=== PATIENT | female | born 1955 | race Caucasian/White ===

== ENCOUNTER 2020-08-28 13:40 | Emergency (ER) | payer BC, OTHER ==
[~2020-08-28] VITALS: Ht 167.6 cm; Wt 72.6 kg
[~2020-08-28 13:40] MED LIST: VICODIN ES TAB1 EACH PO; Z.0.PROTONIX40 MG PO; Z.0.ZANTAC150 MG PO; protonix; zantac
[2020-08-28] MEDS ORDERED: PANTOPRAZOLE 40 MG 10ML VIAL IV STA (14:23)
[2020-08-28 14:31] LABS: BASOPHILS # (AUTO) 0.1 (0.0-0.1); BASOPHILS % 0.7 % (0.0-1.0); EOSINOPHILS # (AUTO) 0.3 (0.0-0.4); EOSINOPHILS % 2.8 % (0.0-6.0); HEMATOCRIT 46.9 % (34.2-44.1); HEMOGLOBIN 15.5 g/dL (12.0-16.0); LYMPHOCYTES # (AUTO) 1.7 (1.0-3.2); LYMPHOCYTES % 16.4 % (18.0-39.1); MEAN CORPUSCULAR HEMOGLOBIN 27.3 pg (28-32); MEAN CORPUSCULAR VOLUME 82.6 fL (81-99); MONOCYTES # (AUTO) 0.8 (0.2-0.8); MONOCYTES % 7.3 % (4.4-11.3); NEUTROPHILS # (AUTO) 7.6 (2.1-6.9); NEUTROPHILS % 72.5 % (38.7-80.0); PLATELET COUNT 271 x10e3/uL (140-360); RED BLOOD COUNT 5.68 x10e6/uL (3.6-5.1); RED CELL DISTRIBUTION WIDTH 13.6 % (11.7-14.4)
[2020-08-28 14:38] LABS: INR 0.97; PROTHROMBIN TIME 13.4 seconds (11.9-14.5)
[2020-08-28 14:39] LABS: PARTIAL THROMBOPLASTIN TIME 31.4 seconds (23.8-35.5)
[2020-08-28 14:46] LABS: ALANINE AMINOTRANSFERASE 22 IU/L (0-55); ALBUMIN 4.4 g/dL (3.5-5.0); ALBUMIN/GLOBULIN RATIO 1.2 (0.8-2.0); ALKALINE PHOSPHATASE 70 IU/L (40-150); ANION GAP 14.8 mmol/L (8-16); BLOOD UREA NITROGEN 13 mg/dL (7-26); BUN/CREATININE RATIO 14 (6-25); CARBON DIOXIDE 28 mmol/L (22-29); CHLORIDE 102 mmol/L (98-107); CREATINE KINASE 65 IU/L (29-168); EST GLOMERULAR FILTRATION RATE > 60 ML/MIN (60-); GLUCOSE 95 mg/dL (74-118); POTASSIUM 3.8 mmol/L (3.5-5.1); SODIUM 141 mmol/L (136-145)
--- OUTSIDE RECORDS SUMMARY | 2020-08-28 15:13 | XMS REPORT | Clinical Summary ---
Author Author [facility] Organization [facility] Address Unknown Phone Unavailable Care Team Providers Care Milling/Polishing Operator Name Role Phone Asked, No Pcp PCP Unavailable Allergies Not on File Medications Not on file Active Problems Not on file Encounters Care Team Description Date Type Specialty 04/01/2020 Travel 03/25/2020 Travel 03/20/2020 Travel 03/17/2020 Travel Michel Lester PA Lateral epicondylitis, left elbow (Prima ry Dx) 03/12/2020 Transcribe Physical Therapy Orders 03/12/2020 Travel after 08/28/2019 Social History Date Tobacco Use Types Packs/Day Years Used Never Assessed Sex Assigned at Date Recorded Not on file Last Filed Vital Signs Not on file Plan of Treatment Health Maintenance Due Date Last Done Comments CERVICAL CANCER SCREENING 1977 BREAST CANCER SCREENING 2006 COLONOSCOPY SCREENING 2006 SHINGLES VACCINES (#1) 2006 INFLUENZA VACCINE 05/23/2020 Results Not on fileafter 08/28/2019 Insurance Type Payer Benefit Subscriber ID Effective Phone Address Plan / Dates Group PPO BCBS BCBS [id number] 2019-P CHOICE resent PPO/JONATHAN BURTON PPO Advance Directives For more information, please contact: [phone] Patient Technology Methodology Consultant Explanation Type Date Recorded Advance Directives, Living Will and Medical Power of Classifier
--- OUTSIDE RECORDS SUMMARY | 2020-08-28 15:13 | XMS REPORT | Clinical Summary ---
Author Author JULIANNE [facility] Address Unknown Phone Unavailable Care Team Providers Care Food Service Steward Name Role Phone Sharpasael PCP Allergies No Known Allergies Medications End Date Status Medication Sig Dispensed Refills Start Date Active OMEPRAZOLE (PRILOSEC Take by 0 ORAL) mouth. Active Problems Not on file Social History Date Tobacco Use Types Packs/Day Years Used Never Smoker Drinks/Week oz/Week Comments Alcohol Use Yes Sex Assigned at Date Recorded Not on file Last Filed Vital Signs Not on file Plan of Treatment Health Maintenance Due Date Last Done Comments BREAST CANCER SCREENING 1956 COLON CANCER SCREENING 1956 COLONOSCOPY CERVICAL CANCER SCREENING 1977 PAP ONLY (Age 21-65) LIPID PANEL 2001 INFLUENZA VACCINE (#1) 2020 Results Not on fileafter 08/28/2019 Insurance Type Payer Benefit Subscriber ID Effective Phone Address Plan / Dates Group PPO BLUE CROSS/BLUE SHIELD BCBS PPO [id number] 2015-P [address] EPO resent [id number] [place] [address]
--- OUTSIDE RECORDS SUMMARY | 2020-08-28 15:13 | XMS REPORT | Continuity of Care Document ---
Author Author [facility] t Organization [facility] Address [address] [place] [address] Phone Unavailable Care Team Providers Care Rehabilitation Therapist Name Role Phone Asked, Pcp No PCP Unavailable MARCIA MOTA Attphys Unavailable Michel Sandhu Attphys Payers Payer Name Policy Type Policy Number Effective Date Expiration Date S ource BCBSBCBS CHOICE PPO/FEDERAL EMPL [id number] 2018- PresentPPO [id number] 2019 00:00:00 [place] [employer] Problems This patient has no known problems. Allergies, Adverse Reactions, Alerts Allergy Name Allergy Type Status Severity Reaction(s) Onset Date Inacti ve Date Treating Clinician Comments Source No Known Drug Allergies DA Active U 2019-12-25 00:00:[address] [facility] No Known Contrast Allergies DA Active U 2008-11-05 00:00: [address] [facility] No Known Drug Allergies DA Active U 2008-11-05 00:00:[address] [facility] No Known Food Allergies DA Active U 2008-11-05 00:00:[address] [facility] No Known Other Allergies DA Active U 2008-11-05 00:00:[address] [facility] No Known Drug Intolerances DA Active U 2008-11-04 00:00:[address] [facility] Social History Social Habit Start Date Stop Date Quantity Comments Source Sex Assigned At [facility] Alcohol intake 2014-09-14 00:00:00 2014-09-14 00:00:00 Current drinker of alcohol (finding) [facility] Smoking Status Start Date Stop Date Source Never smoker [facility] Medications Ordered Medication Name Filled Medication Name Start Date Stop Da te Current Medication? Ordering Clinician Indication Dosage Frequency Signature (SIG) Comments Components Source OMEPRAZOLE (PRILOSEC ORAL) 2014-09-14 21:57:50 Yes Take by mouth. [facility] Procedures This patient has no known procedures. Plan of Care Planned Activity Planned Date Details Comments Source Future Scheduled Test 2020-06-23 00:00:00 INFLUENZA VACCINE (#1) [code = INFLUENZA VACCINE (#1)] [facility] Future Scheduled Test 2020-05-23 00:00:00 INFLUENZA VACCINE [code = INFLUENZA VACCINE] [facility] Scheduled Test 2006 00:00:00 BREAST CANCER SCRE ENING [code = BREAST CANCER SCREENING] [facility] Future Scheduled Test 2006 00:00:00 COLONOSCOPY SCREEN ING [code = COLONOSCOPY SCREENING] [facility] Scheduled Test 2006 00:00:00 SHINGLES VACCINES (#1) [code = SHINGLES VACCINES (#1)] [facility] Scheduled Test 2001 00:00:00 Lipid panel (proce dure) [code = 39210077] [facility] Future Scheduled Test 1977 00:00:00 Screening for chong gnant neoplasm of cervix (procedure) [code = 940304024] [facility] Future Scheduled Test 1977 00:00:00 Screening for chong gnant neoplasm of cervix (procedure) [code = 895885974] [facility] Future Scheduled Test 1956 00:00:00 Screening for chong gnant neoplasm of breast (procedure) [code = 350308892] [facility] Future Scheduled Test 1956 00:00:00 Screening for chong gnant neoplasm of colon (procedure) [code = 648672567] [facility] Encounters Start Date/Time End Date/Time Encounter Type Admission Type [facility] Care Department Encounter ID Source 2020-04-01 00:00:00 2020-04-01 00:00:00 Outpatient MOTA, MARCIA [facility] [id number] Avery Meek 2020-03-25 00:00:00 2020-03-25 00:00:00 Outpatient MOTAMARCIA [facility] [id number] Avery Meek 2020-03-20 00:00:00 2020-03-20 00:00:00 Outpatient MOTA, MARCIA [facility] [id number] Avery Meek 2020-03-17 00:00:00 2020-03-17 00:00:00 Outpatient MOTA, MARCIA [facility] [id number] Avery Meek Results Test Description Test Time Test Comments Results Result Comments Source RAD, CHEST, 2 VIEWS 2017-11-06 08:55:00 Reason for Exam:->POS IG RA FINAL REPORT Chest two views INDICATION: Positive IGRA. COMPARISON: 09/14/2014 IMPRESSION: There is no focal consolidation, vascular congestion, pleural effusion, or pneumothorax. Lung granulomata and calcified right hilar lymph nodes are again noted. The cardiomediastinal silhouette is unremarkable. No acute osseous abnormality is evident. Signed: Ozzie Stanley MDReport Verified Date/Time: 11/06/2017 08:55:19 Reading Location: [facility] Radiology Reading Room
--- NOTE | 2020-08-28 15:18 | Diagnostic Imaging Report ---
EXAMINATION: CHEST SINGLE (PORTABLE) INDICATION: Chest pain COMPARISON: None FINDINGS: LINES/TUBES:None LUNGS:The lungs are well-inflated. No focal consolidation or pulmonary edema. PLEURA:No pleural effusion or pneumothorax. MEDIASTINUM:The cardiomediastinal silhouette appears normal in size and shape. BONES/SOFT TISSUES:No acute osseous injury. ABDOMEN:No free air under the diaphragm. IMPRESSION: No focal pneumonia or pulmonary edema. Signed by: Virgil Calero MD on 08/28/2020 3:15 PM
--- NOTE | 2020-08-28 15:31 | Emergency Department Note ---
History of Present Illnes History of Present Illness Chief Complaint: Chest Pain History of Present Illness This is a 65 year old female PATIENT IN FROM HOME WITH COMPLAINTS OF CHEST PRESSURE OFF AND ON SINCE YESTERDAY; ALSO WITH COMPLAINTS OF SHORTNESS OF BREATH ON EXERTION. PATIENT APPEARS IN NO DISTRESS, RESP EVEN AND NONLABORED, RESP EVEN AND NONLABORED, AMBULATORY WITHOUT ASSISTANCE, RATES PAIN 1/10. PATIENT DENIES ANY FEVER, COUGH, OR CONGESTION. Historian: Patient Arrival Mode: Car Mineral Resources Inspector Required: No Onset (how long ago): day(s) (1) Location: MID-CHEST Quality: BURNING PAIN Radiation: Reports non-radiation Severity: moderate (5/10 LAST NIGHT) Timing of current episode: constant Progression: improving Chronicity: new Context: Denies recent illness Relieving factors: none Exacerbating factors: none Associated symptoms: Reports denies other symptoms Past Medical/Family History Physician Review I have reviewed the patient's past medical and family history. Any updates have been documented here. Past Medical History Recent Fever: No Clinical Suspicion of Infectio: No New/Unexplained Change in Ment: No Past Medical History: Hypertension, GERD Other Medical History: gi problems acid reflux Past Surgical History: Cholecysctectomy, Hysterectomy, Tubal Ligation Other Surgery: LEFT KNEE SURGERY Social History Smoking Cessation: Never Smoker Counseling Performed: No Alcohol Use: Occasional Any Illegal Drug Use: No TB Exposure/Symptoms: No Physically hurt or threatened: No Family History Family history of heart diseas: No Other Last Tetanus: 2011 Review of Systems Review of Systems Constitutional: Reports no symptoms EENTM: Reports no symptoms Cardiovascular: Reports chest pain Respiratory: Reports no symptoms Gastrointestinal: Reports no symptoms Genitourinary: Reports no symptoms Musculoskeletal: Reports no symptoms Integumentary: Reports no symptoms Neurological: Reports no symptoms Psychological: Reports no symptoms Endocrine: Reports no symptoms Hematological/Lymphatic: Reports no symptoms Physical Exam Related Data Allergies: Coded Allergies: No Known Drug Allergies (Verified Allergy, Mild, 01/24/11) Triage Vital Signs Vital Signs Date Time Temp Pulse Resp B/P (MAP) Pulse Ox O2 Delivery O2 Flow Rate FiO2 08/28/20 13:49 98.4 92 20 151/78 100 Room Air Vital signs reviewed: Yes Physical Exam CONSTITUTIONAL Constitutional: Present well-developed, Present well-nourished HENT HENT: Present normocephalic, Present atraumatic, Present oropharynx clear/moist, Present nose normal HENT L/R: Present left ext ear normal, Present right ext ear normal EYES Eyes: Reports PERRL, Reports conjunctivae normal NECK Neck: Present ROM normal PULMONARY Pulmonary: Present effort normal, Present breath sounds normal CARDIOVASCULAR Cardiovascular: Present regular rhythm, Present heart sounds normal, Present capillary refill normal, Present normal rate GASTROINTESTINAL Abdominal: Present soft, Present nontender, Present bowel sounds normal GENITOURINARY Genitourinary: Present exam deferred SKIN Skin: Present warm, Present dry MUSCULOSKELETAL Musculoskeletal: Present ROM normal NEUROLOGICAL Neurological: Present alert, Present oriented x 3, Present no gross motor or sensory deficits PSYCHOLOGICAL Psychological: Present mood/affect normal, Present judgement normal Results Laboratory Result Diagram: 08/28/20 1412 08/28/20 1412 Laboratory Laboratory Tests Test 08/28/20 14:12 White Blood Count 10.45 x10e3/uL (4.8-10.8) Red Blood Count 5.68 x10e6/uL (3.6-5.1) Hemoglobin 15.5 g/dL (12.0-16.0) Hematocrit 46.9 % (34.2-44.1) Mean Corpuscular Volume 82.6 fL (81-99) Mean Corpuscular Hemoglobin 27.3 pg (28-32) Mean Corpuscular Hemoglobin Concent 33.0 g/dL (31-35) Red Cell Distribution Width 13.6 % (11.7-14.4) Platelet Count 271 x10e3/uL (140-360) Neutrophils (%) (Auto) 72.5 % (38.7-80.0) Lymphocytes (%) (Auto) 16.4 % (18.0-39.1) Monocytes (%) (Auto) 7.3 % (4.4-11.3) Eosinophils (%) (Auto) 2.8 % (0.0-6.0) Basophils (%) (Auto) 0.7 % (0.0-1.0) Neutrophils # (Auto) 7.6 (2.1-6.9) Lymphocytes # (Auto) 1.7 (1.0-3.2) Monocytes # (Auto) 0.8 (0.2-0.8) Eosinophils # (Auto) 0.3 (0.0-0.4) Basophils # (Auto) 0.1 (0.0-0.1) Absolute Immature Granulocyte (auto 0.03 x10e3/uL (0-0.1) Prothrombin Time 13.4 seconds (11.9-14.5) Prothromb Time International Ratio 0.97 Activated Partial Thromboplast Time 31.4 seconds (23.8-35.5) Sodium Level 141 mmol/L (136-145) Potassium Level 3.8 mmol/L (3.5-5.1) Chloride Level 102 mmol/L (98-107) Carbon Dioxide Level 28 mmol/L (22-29) Anion Gap 14.8 mmol/L (8-16) Blood Urea Nitrogen 13 mg/dL (7-26) Creatinine 0.90 mg/dL (0.57-1.11) Estimat Glomerular Filtration Rate > 60 ML/MIN (60-) BUN/Creatinine Ratio 14 (6-25) Glucose Level 95 mg/dL (74-118) Calcium Level 10.0 mg/dL (8.4-10.2) Total Bilirubin 0.7 mg/dL (0.2-1.2) Aspartate Amino Transf (AST/SGOT) 21 IU/L (5-34) Alanine Aminotransferase (ALT/SGPT) 22 IU/L (0-55) Alkaline Phosphatase 70 IU/L (40-150) Creatine Kinase 65 IU/L (29-168) Creatine Kinase MB 0.70 ng/mL (0-5.0) Troponin I 0.004 ng/mL (0-0.300) B-Type Natriuretic Peptide < 10.0 pg/mL (0-100) Total Protein 8.0 g/dL (6.5-8.1) Albumin 4.4 g/dL (3.5-5.0) Globulin 3.6 g/dL (2.3-3.5) Albumin/Globulin Ratio 1.2 (0.8-2.0) Lab results reviewed: Yes Imaging Imaging results reviewed: Yes Impressions EXAMINATION: CHEST SINGLE (PORTABLE) INDICATION: Chest pain COMPARISON: None FINDINGS: LINES/TUBES:None LUNGS:The lungs are well-inflated. No focal consolidation or pulmonary edema. PLEURA:No pleural effusion or pneumothorax. MEDIASTINUM:The cardiomediastinal silhouette appears normal in size and shape. BONES/SOFT TISSUES:No acute osseous injury. ABDOMEN:No free air under the diaphragm. IMPRESSION: No focal pneumonia or pulmonary edema. Signed by: Virgil Calero MD on 08/28/2020 3:15 PM Procedures 12 Lead ECG Interpretation ECG Interpretation : ECG: ECG 1 Mineral Resources Inspector: Interpreted by ED physician Date: Aug 28, 2020 Time: 13:59 Rhythm: sinus rhythm Rate: normal BPM: 93 QRS axis: normal ST segments normal: Yes T waves normal: Yes Clinical Impression: normal ECG Assessment & Plan Medical Decision Making [facility] CP - CHECK CBC, CHEM, ECG, CARDIACS, CXR - R/O STEMI/NSTEMI, GERD/GASTRITIS, ELECTROLYTE ABNL Reassessment Reassessment CARDIAC ENZYMES NEG X 2, ECG NORMAL, PAIN R/B GI COCKTAIL. WILL DC HOME, F/U PCP AND DR ANTONIO (CALL MONDAY FOR APPT), RTED SX'S WORSEN, CONTINUE PPI, PEPCID COMPLETE DIRECTED Assessment & Plan Final Impression: (1) Chest pain (2) GERD (gastroesophageal reflux disease) (3) Gastritis Depart Disposition: HOME, SELF-CARE Last Vital Signs Date Time Temp Pulse Resp B/P (MAP) Pulse Ox O2 Delivery O2 Flow Rate FiO2 08/28/20 13:49 98.4 92 20 151/78 100 Room Air Home Meds Reported Medications Hydrocodone Bit/Acetaminophen (Vicodin Es Tablet) 1 Each Tablet, 1 EACH PO prn q 6 07/26/12 Ranitidine Hcl (Zantac) 150 Mg Tablet, 150 MG PO BID 07/25/12 Pantoprazole Sodium (Protonix) 40 Mg Tablet.dr, 40 MG PO DAILY 07/25/12 Medications in the ED Pantoprazole Sodium 40 mg ONCE STAT IV Last administered on 08/28/20at 15:00; Admin Dose 40 MG; Start 08/28/20 at 14:23; Stop 08/28/20 at 14:25; Status DC THELMA PARKER MD Aug 28, 2020 15:31
[2020-08-28] MEDS ORDERED: SODIUM CHLORIDE 0.9% 1000ML 1,000 ML IV STA (15:46)
[2020-08-28] MEDS ORDERED: BELLADONNA ALK/PHENOBARBITAL 5 ML UDC PO ONE (16:00)
[2020-08-28] MEDS ORDERED: MAGNESIUM/ALUMINUM/SIMETHICONE 30 ML UDC PO ONE (16:00)
[2020-08-28] MEDS ORDERED: LIDOCAINE VISC 2% SOLN 15 ML UDC PO ONE (16:00)
[2020-08-28 17:20] LABS: CREATINE KINASE MB 0.6 ng/mL (0-5.0)
== END 2020-08-28 17:40 | disposition home or self-care (01) ==
LOC: ER 14:30
DX: R07.89 Other chest pain (principal); K21.9 Gastro-esophageal reflux disease without esophagitis; K29.70 Gastritis, unspecified, without bleeding; I10 Essential (primary) hypertension
CPT/HCPCS: 36415; 71045; 80053; 82550; 82553; 83880; 84484; 85025; 85610; 85730; 93005; 99284; C9113; J7030